=== PATIENT | male | born 1970 | race Caucasian/White ===

== ENCOUNTER 2017-03-04 09:19 | Emergency (ER) | payer MEDICARE | END 2017-03-04 10:30 | disposition home or self-care (01) | LOC: ER 09:19 | DX: S86.911A Strain of unspecified muscle(s) and tendon(s) at lower leg level, right leg, initial encounter (principal); I10 Essential (primary) hypertension; K21.9 Gastro-esophageal reflux disease without esophagitis ==

== ENCOUNTER → 2017-04-24 | Day surgery (SDC) | payer OTHER ==
[~2017-04-24] VITALS: Ht 175.3 cm; Wt 107.5 kg
== END | disposition home or self-care (01) ==
LOC: SDC 06:55
DX: M23.221 Derangement of posterior horn of medial meniscus due to old tear or injury, right knee (principal); M1A.9XX0 Chronic gout, unspecified, without tophus (tophi); I10 Essential (primary) hypertension; E78.00 Pure hypercholesterolemia, unspecified; K21.9 Gastro-esophageal reflux disease without esophagitis; F41.9 Anxiety disorder, unspecified; Z79.899 Other long term (current) drug therapy; Z87.442 Personal history of urinary calculi; F32.9 Major depressive disorder, single episode, unspecified; E66.9 Obesity, unspecified
CPT/HCPCS: J0171; J1885; J2704